=== PATIENT | male | born 2000 | race Two or more races ===

== ENCOUNTER 2024-07-07 11:21 | Emergency (ER) | payer OTHER ==
[~2024-07-07] VITALS: Ht 170.2 cm; Wt 77.1 kg
[2024-07-07] MEDS ORDERED: 0.9 % SODIUM CHLORIDE 1,000 ML IV STA (13:01)
[2024-07-07 14:06] LABS: HEMOGLOBIN 16.6 g/dL (13-16.00); MEAN CELL VOLUME 93.9 fL (80.0-100.00); MEAN CORPUSCULAR HEMOGLOBIN 33.1 pg (27.00-32.0); MEAN CORPUSCULAR HGB CONC 35.2 g/dl (32.0-36.0); PLATELET COUNT 169 K/uL (150-450); RED BLOOD COUNT 5.01 M/uL (4.00-6.00); RED CELL DISTRIBUTION WIDTH 12.6 % (11.5-14.5)
[2024-07-07 14:30] LABS: CALCIUM 9.7 mg/dL (8.5-10.1); CREATININE SERUM 1.02 mg/dL (0.70-1.30); GFR 89.73; POTASSIUM 4.24 mEq/L (3.5-5.1)
[2024-07-07 15:04] LABS: PH,URINE 6.5 (5.0-8.0); URINE APPEARANCE Clear; URINE BILIRRUBIN Negative (NEGATIVE); URINE BLOOD Negative; URINE COLOR Yellow; URINE GLUCOSE Negative (NEGATIVE); URINE LEUKOCYTE Negative; URINE NITRATE Negative; URINE PROTEIN 30 (NEGATIVE); URINE UROBILINOGEN 0.2 E.U./dl
[2024-07-07 15:08] LABS: URINE BACTERIA 7.3 uL (0.0-1933); URINE EPITHELIAL CELLS 10.7 uL (0.0-38.8); URINE RBC 2.5 uL (0.0-20.8); URINE WBC 7.5 uL (0.0-23.2)
[2024-07-07 15:30] LABS: URINE CAST 0.73 uL (0.0-1.40); URINE KETONE 40 (NEGATIVE)
== END 2024-07-07 17:04 | disposition home or self-care (01) ==
LOC: ER 11:23
PROVIDERS: Emergency Medicine
DX: K52.89 Other specified noninfective gastroenteritis and colitis (principal)
CPT/HCPCS: 36415; 96365; 96366; 99282; J7030